=== PATIENT | male | born 1990 | race Caucasian/White ===

== ENCOUNTER 2016-07-03 19:22 | Emergency (ER) | payer MEDICAID ==
[~2016-07-03] VITALS: Ht 175.3 cm; Wt 81.8 kg
[2016-07-03] MEDS ORDERED: ALBUTEROL SULFATE HFA 90 MCG/PUFF 8 GM INHALER IH ONE (22:45)
[2016-07-03 23:05] VITALS: BP 125/76
== END 2016-07-03 23:09 | disposition home or self-care (01) ==
LOC: EMS 19:23
DX: J32.9 Chronic sinusitis, unspecified (principal); F17.210 Nicotine dependence, cigarettes, uncomplicated
CPT/HCPCS: 99283; 99406; J3535

== ENCOUNTER 2019-04-07 16:19 | Emergency (ER) | payer MEDICAID ==
[~2019-04-07] VITALS: Ht 175.3 cm; Wt 85.5 kg
[2019-04-07] MEDS ORDERED: IBUPROFEN 800 MG TABLET PO ONE (18:45)
[2019-04-07 19:00] VITALS: BP 122/79
== END 2019-04-07 19:19 | disposition home or self-care (01) ==
LOC: EMS 16:21
DX: S93.421A Sprain of deltoid ligament of right ankle, initial encounter (principal); X50.1XXA Overexertion from prolonged static or awkward postures, initial encounter; Y93.89 Activity, other specified; Y92.89 Other specified places as the place of occurrence of the external cause; Y99.8 Other external cause status